=== PATIENT | male | born 1965 | race Caucasian/White ===

== ENCOUNTER 2018-08-06 09:36 | Inpatient (IN) | payer MEDICARE, MEDICAID ==
[~2018-08-06] VITALS: Ht 182.9 cm; Wt 89.8 kg
[2018-08-06] MEDS ORDERED: KEPPSOL GT (09:41)
[2018-08-06] MEDS ORDERED: LEVETIRACETAM 1000MG/100ML 100 ML IV ONE (10:00)
[2018-08-06] MEDS ORDERED: LEVETIRACETAM 1000MG/100ML 100 ML IV NR (10:30)
[2018-08-06] MEDS ORDERED: LORAZEPAM 2MG/ML CPJ IV NR (11:15)
[2018-08-06 11:26] LABS: CLARITY URINE CLEAR (CLEAR); COLOR URINE YELLOW (YELLOW); KETONES URINE TRACE (NEGATIVE); LEUKOCYTE ESTERASE URINE NEGATIVE (NEGATIVE); NITRITE URINE NEGATIVE (NEGATIVE); OCCULT BLOOD URINE NEGATIVE (NEGATIVE); PROTEIN URINE 1+ (NEGATIVE); SPECIFIC GRAVITY URINE 1.024 (1.005-1.030); UROBILINOGEN URINE 0.2 E.U./dL (0.2-1.0)
[2018-08-06 11:37] LABS: BASOPHILS % 0.5 % (0.0-2.0); EOSINOPHILS % 1.3 % (0.0-5.0); HEMATOCRIT. 42.8 % (42.0-52.0); HEMOGLOBIN. 14.4 g/dL (14.0-18.0); MEAN CORPUSCULAR HEMOGLOBIN 31.2 pg (28.0-32.0); MEAN CORPUSCULAR VOLUME 92.6 fL (80.0-94.0); MEAN PLATELET VOLUME 7.6 fl (7.4-10.4); MONOCYTES % 7.4 % (2.0-8.0); NEUTROPHILS % 71.8 % (40.0-76.0); PLATELET 290 x1000/uL (130-400); RED BLOOD CELL COUNT 4.62 mill/uL (4.7-6.1); RED CELL DISTRIBUTION WIDTH 13.8 % (11.6-14.6)
[2018-08-06 11:49] LABS: CHLORIDE 104 mEq/L (98-107)
[2018-08-06 11:55] LABS: ETHANOL BLOOD < 10 mg/dL
[2018-08-06 12:01] LABS: *AMPHETAMINES SCREEN URINE PRESUMTIVE POSITIVE (NEGATIVE); *BARBITURATES SCREEN URINE NEGATIVE (NEGATIVE); *BENZODIAZEPINES SCREEN URINE PRESUMTIVE POSITIVE (NEGATIVE); *COCAINE SCREEN URINE PRESUMTIVE POSITIVE (NEGATIVE)
[2018-08-06 12:02] LABS: CANNABINOID URINE SCREEN PRESUMTIVE POSITIVE (NEGATIVE); METHADONE URINE SCREEN NEGATIVE (NEGATIVE); OPIATES URINE SCREEN NEGATIVE (NEGATIVE); PHENCYCLIDINE URINE SCREEN NEGATIVE (NEGATIVE)
[2018-08-06 12:16] LABS: CARBAMAZEPINE < 0.5 ug/mL (4-12); PHENOBARBITAL < 2.1 ug/mL (15.0-40.0); VALPROIC ACID < 3.0 ug/mL (50-100)
[2018-08-06] MEDS ORDERED: NITROGLYCERIN 0.4MG TABLET SL SL PRN (14:15)
[2018-08-06] MEDS ORDERED: LORAZEPAM 2MG/ML CPJ IV PRN (14:15)
[2018-08-06] MEDS ORDERED: ONDANSETRON HCL 4MG/2ML INJ IV PRN (14:15)
[2018-08-06] MEDS ORDERED: GUAIFENESIN 200MG/10ML SUGAR FREE UDC PO PRN (14:15)
[2018-08-06] MEDS ORDERED: KETOROLAC 15MG/ML VIAL IV PRN (14:15)
[2018-08-06] MEDS ORDERED: ACETAMINOPHEN 325MG TABLET PO PRN (14:15)
[2018-08-06] MEDS ORDERED: MAGNESIUM/ALUMINUM HYDROXIDE/SIMETHICONE 30ML UDC PO PRN (14:15)
[2018-08-06] MEDS ORDERED: DOCUSATE SODIUM 100MG CAPSULE PO PRN (14:15)
[2018-08-06] MEDS ORDERED: NA PHOS,M-B/NA PHOS,DI-BA ENEMA 118ML PR PRN (14:15)
[2018-08-06] MEDS ORDERED: CLONIDINE 0.1MG TABLET PO PRN (14:15)
[2018-08-06] MEDS ORDERED: IPRATROPIUM/ALBUTEROL 0.5-3(2.5)MG/3ML NEB INH PRN (14:15)
[2018-08-06 15:30] VITALS: BP 106/57
[2018-08-06] MEDS: DILTIAZEM HCL 60MG TABLET PO SCH (18:00)
[2018-08-06] MEDS: ENOXAPARIN 40MG/0.4ML SYR SUBCUT SCH (18:25)
[2018-08-06 20:00] VITALS: BP 115/61
[2018-08-06] MEDS: LEVETIRACETAM 500MG TABLET PO SCH (21:08)
[2018-08-06] MEDS: FAMOTIDINE 20MG TABLET PO SCH (21:08)
[2018-08-07] VITALS: BP 117/55
[2018-08-07] MEDS: DILTIAZEM HCL 60MG TABLET PO SCH ×4 (00:37→17:03)
[2018-08-07 04:00] VITALS: BP 104/53
[2018-08-07 08:00] VITALS: BP 102/61
[2018-08-07] MEDS: FAMOTIDINE 20MG TABLET PO SCH ×2 (08:57→20:47)
[2018-08-07] MEDS: LEVETIRACETAM 500MG TABLET PO SCH ×2 (08:57→20:47)
[2018-08-07] MEDS: THIAMINE HCL 100MG TABLET PO SCH (12:51)
[2018-08-07] MEDS: FOLIC ACID 1MG TABLET PO SCH (12:51)
[2018-08-07 12:53] VITALS: BP 98/54
[2018-08-07] MEDS: MULTIVITAMINS,THER W-MINERALS TABLET PO SCH (12:53)
[2018-08-07] MEDS ORDERED: PHENYTOIN SODIUM 1,000 MG in SODIUM CHLORIDE 0.9% 100 ML IV NR (13:30)
[2018-08-07] MEDS: PHENYTOIN SODIUM EXTENDED 100MG CAPSULE PO SCH ×2 (14:00→21:20)
[2018-08-07 16:37] VITALS: BP 108/70
[2018-08-07] MEDS: ENOXAPARIN 40MG/0.4ML SYR SUBCUT SCH (17:04)
[2018-08-07 19:56] VITALS: BP 100/61
[2018-08-08] VITALS: BP 101/66
[2018-08-08 04:00] VITALS: BP 100/69
[2018-08-08] MEDS: DILTIAZEM HCL 60MG TABLET PO SCH ×2 (05:18)
[2018-08-08] MEDS: PHENYTOIN SODIUM EXTENDED 100MG CAPSULE PO SCH (05:26)
[2018-08-08 08:00] VITALS: BP 100/59
[2018-08-08] MEDS: MULTIVITAMINS,THER W-MINERALS TABLET PO SCH (08:16)
[2018-08-08] MEDS: LEVETIRACETAM 500MG TABLET PO SCH (08:16)
[2018-08-08] MEDS: FAMOTIDINE 20MG TABLET PO SCH (08:16)
[2018-08-08] MEDS: FOLIC ACID 1MG TABLET PO SCH (08:16)
[2018-08-08] MEDS: THIAMINE HCL 100MG TABLET PO SCH (08:16)
[2018-08-08 10:46] VITALS: BP 100/59
== END 2018-08-08 11:45 | disposition home or self-care (01) | DRG 101 ==
LOC: ER 09:36 → EDBEDREQ 10:00 → 8WST 13:13 → EDBEDREQ 13:16 → ENRESERV 13:30
PROVIDERS: ADMIT Internal Medicine; ATTEND Internal Medicine
DX: G40.901 Epilepsy, unspecified, not intractable, with status epilepticus (principal); E83.51 Hypocalcemia; E83.52 Hypercalcemia; F10.10 Alcohol abuse, uncomplicated; F15.10 Other stimulant abuse, uncomplicated; F14.10 Cocaine abuse, uncomplicated; F17.200 Nicotine dependence, unspecified, uncomplicated; Z91.19 Patient's noncompliance with other medical treatment and regimen
CPT/HCPCS: 36415; 70450; 70551; 80053; 80156; 80165; 80184; 80185; 80305; 81003; 83036; 85025; 93970; 96365; 96367; 96375; 99291; G0482; J1165; J1650; J1953; J2060; J7050; A4315

== ENCOUNTER 2024-11-29 03:43 | Emergency (ER) | payer BC, MEDICAID ==
[~2024-11-29] VITALS: Ht 180.3 cm; Wt 113.0 kg
[~2024-11-29 03:43] MED LIST: KEPPSOL GT
[2024-11-29 03:45] VITALS: O2SAT 99
[2024-11-29 04:53] LABS: BASOPHILS % 0.6 % (0.0-2.0); EOSINOPHILS % 6.8 % (0.0-5.0); HEMATOCRIT. 41.2 % (42.0-52.0); HEMOGLOBIN. 14.2 g/dL (14.0-18.0); LYMPHOCYTES % 12.3 % (20.0-50.0); MEAN CORPUSCULAR HEMOGLOBIN 31.7 pg (28.0-32.0); MEAN CORPUSCULAR HGB CONC 34.4 g/dL (31.0-37.0); MEAN CORPUSCULAR VOLUME 92.3 fL (80.0-94.0); MEAN PLATELET VOLUME 6.6 fl (7.4-10.4); MONOCYTES % 7.9 % (2.0-8.0); NEUTROPHILS % 72.4 % (40.0-76.0); PLATELET 388 x1000/uL (130-400); RED BLOOD CELL COUNT 4.46 mill/uL (4.7-6.1); RED CELL DISTRIBUTION WIDTH 13.7 % (11.6-14.6); WHITE BLOOD COUNT 8.1 x1000/uL (4.5-11.0)
[2024-11-29 04:59] LABS: CHLORIDE 106 mEq/L (98-107); POTASSIUM 4.4 mEq/L (3.5-5.1); SODIUM 140 mEq/L (136-145)
[2024-11-29 05:00] LABS: CARBON DIOXIDE 21 mEq/L (21-32)
[2024-11-29] MEDS: SODIUM CHLORIDE 0.9% 1,000 ML IV ONE (05:00)
[2024-11-29 05:01] LABS: CALCIUM 9.2 mg/dL (8.7-10.4)
[2024-11-29] MEDS: LEVETIRACETAM 1000MG PREMIX 100 ML IV ONE (05:03)
[2024-11-29 05:05] LABS: CREATININE 1.2 mg/dL (0.6-1.3); GLUCOSE 99 mg/dL (70-105); UREA NITROGEN BLOOD 9 mg/dL (9-23)
[2024-11-29 05:06] LABS: TROPONIN I HIGH SENSITIVITY 10 ng/L (3.0-53)
[2024-11-29 05:07] LABS: CREATINE KINASE 642 IU/L (46-171)
[2024-11-29 05:17] LABS: ETHANOL BLOOD < 10 mg/dL (<10); LACTIC ACID 5.2 mmol/L (0.4-2.0)
[2024-11-29] MEDS: LORAZEPAM 2MG/ML INJ IV ONE (07:46)
[2024-11-29] MEDS ORDERED: ONDANSETRON HCL 4MG/2ML INJ IV PRN (09:30)
[2024-11-29] MEDS ORDERED: ACETAMINOPHEN 325MG TABLET PO PRN ×2 (09:30)
[2024-11-29] MEDS ORDERED: GUAIFENESIN 200MG/10ML SUGAR FREE UDC PO PRN (09:30)
[2024-11-29] MEDS ORDERED: LORAZEPAM 2MG/ML INJ IV PRN ×2 (09:30)
[2024-11-29] MEDS ORDERED: CHLORDIAZEPOXIDE 25MG CAPSULE PO PRN (09:30)
[2024-11-29] MEDS ORDERED: IPRATROPIUM/ALBUTEROL 0.5-3(2.5)MG/3ML NEB HHN PRN (09:30)
[2024-11-29] MEDS ORDERED: CLONIDINE 0.1MG TABLET PO PRN (09:30)
[2024-11-29] MEDS ORDERED: DOCUSATE SODIUM 100MG CAPSULE PO PRN (09:30)
[2024-11-29] MEDS ORDERED: SODIUM CHLORIDE 0.9% 1,000 ML IV SCH (09:30)
[2024-11-29] MEDS ORDERED: LORAZEPAM 1MG TABLET PO PRN (09:30)
[2024-11-29] MEDS ORDERED: MAGNESIUM/ALUMINUM HYDROXIDE/SIMETHICONE 30ML UDC PO PRN (09:30)
[2024-11-29] MEDS ORDERED: FOLIC ACID 1MG TABLET PO SCH (10:00)
[2024-11-29 10:13] VITALS: BP 125/75; PULSE 79; RESP 17; TEMP 36.83628; O2SAT 99
[2024-11-29 10:21] LABS: TRIGLYCERIDE 64 mg/dL (0-150)
[2024-11-29 10:22] LABS: ALANINE AMINOTRANSFERASE 37 IU/L (10-49); LDL CHOLESTEROL 86 mg/dL (5-100)
[2024-11-29 10:23] LABS: ALBUMIN 4.5 g/dL (3.2-4.8); ASPARTATE AMINOTRANSFERASE 52 IU/L (<34); BILIRUBIN DIRECT 0.2 mg/dL (<=3.0); BILIRUBIN TOTAL 0.5 mg/dL (0.1-1.0); CHOLESTEROL 143 mg/dL (<200); HDL CHOLESTEROL 40 mg/dL (>55); PHOSPHORUS 3.1 mg/dL (2.5-4.9); PROTEIN TOTAL 7.3 g/dL (6.0-8.3)
[2024-11-29 10:27] LABS: THYROID STIMULATING HORMONE 1.02 uIU/mL (0.55-4.78)
[2024-11-29] MEDS ORDERED: FOLIC ACID 1 MG, THIAMINE HCL 100 MG, MVI, ADULT NO.1 10 ML in DEXTROSE 5% WATER 1,000 ML IV ONE (12:00)
[2024-11-29 12:21] LABS: T4 FREE 1.24 ng/dL (0.89-1.76)
[2024-11-29] MEDS ORDERED: LEVETIRACETAM 1000MG PREMIX 100 ML IV SCH (21:00)
[2024-11-30] MEDS ORDERED: MULTIVITAMINS,THER W-MINERALS TABLET PO SCH (09:00)
[2024-11-30] MEDS ORDERED: PANTOPRAZOLE SODIUM 40 MG/VIAL IV SCH (09:00)
[2024-12-02] MEDS ORDERED: THIAMINE HCL 100MG TABLET PO SCH (09:00)
== END 2024-11-29 11:05 | disposition left against medical advice (07) ==
LOC: ER 03:43 → EDBEDREQSVC 10:13 → ER 11:05
DX: G40.901 Epilepsy, unspecified, not intractable, with status epilepticus (principal); F10.20 Alcohol dependence, uncomplicated; F19.90 Other psychoactive substance use, unspecified, uncomplicated; F17.210 Nicotine dependence, cigarettes, uncomplicated; Y90.9 Presence of alcohol in blood, level not specified
CPT/HCPCS: 80061; 80076; 80048; 80320; 82550; 82962; 84439; 83605; 83690; 83735; 84100; 84443; 85025; 84484; 36415; 71045; 70450; 96365; 96366; 99291; J1953; J7030; J3411; J3490; J7070; G0480